=== PATIENT | male | born 1960 | race Caucasian/White ===

== ENCOUNTER 2021-10-11 13:48 | Emergency (ER) | payer OTHER ==
[~2021-10-11 13:48] MED LIST: CEPHALEXIN500 MG PO; LOTRIMIN AF90 GM TOP
[2021-10-11 14:39] LABS: BASOPHIL 0.8 % (0-2); EOSINOPHIL 3.2 % (0-5); HCT 37.9 % (42.0-52.0); HGB 10.6 g/dl (13.2-18.0); LYMPHOCYTE 25.8 % (15-48); MCH 19.9 pg (25.0-31.0); MCV 71.2 fL (78.0-100.0); MONOCYTE 6.8 % (0-12); NEUTROPHIL 63.2 % (41-80); NRBC 0; PLT 268 K/uL (150-400); RBC 5.32 M/uL (4.70-6.00); RDW 19.7 % (11.5-14.0); WBC 9.7 K/uL (4.0-10.5)
[2021-10-11 14:52] LABS: ALBUMIN 3.8 g/dL (3.4-5.0); ALKALINE PHOSHATASE 71 U/L (46-116); ALT 18 U/L (16-63); AST 21 U/L (15-37); BILIRUBIN - TOTAL 0.4 mg/dL (0.2-1.0); BUN 18 mg/dL (7-18); BUN/CREAT RATIO (CALC) 17.6 RATIO; CHLORIDE 102 mmol/L (98-107); CO2 (BICARBONATE) 25 mmol/L (21-32); CREATININE 1.02 mg/dL (0.67-1.17); GLOBULIN (CALCULATION) 3.7 g/dL; GLUCOSE 125 mg/dL (74-106); POTASSIUM 3.9 mmol/L (3.5-5.1); TOTAL PROTEIN 7.5 g/dL (6.4-8.2)
== END 2021-10-11 22:48 | disposition home or self-care (01) ==
LOC: FER 13:48
PROVIDERS: Emergency Medicine
DX: F20.0 Paranoid schizophrenia (principal); Z28.310 Unvaccinated for COVID-19
CPT/HCPCS: 36415; 80053; 85025; 99285; G0480